=== PATIENT | male | born 1960 | race Caucasian/White ===

== ENCOUNTER 2020-11-17 11:09 | Emergency (ER) | payer BC, SELFPAY ==
[2020-11-17 11:15] VITALS: BP 129/87; PULSE 77; RESP 20; TEMP 36.9; O2SAT 96; BMI 29.9
[2020-11-17 11:40] VITALS: BP 129/87; PULSE 77; RESP 20; TEMP 36.9; O2SAT 96
--- NOTE | 2020-11-17 11:46 | HMH.EDUTC ---
[facility] Disposition Clinical Impression: Encounter for laboratory testing for COVID-19 virus, Viral syndrome Disposition: Home, Self-Care Condition on Discharge: Good Instructions: DI for Viral Syndrome, DI for COVID-19 (Suspected or Confirmed ), Coronavirus Disease 2019, Preventing the Spread of Coronavirus Discharge Instructions Additional Instructions: *Monitor Temp, Over the counter Motrin or Tylenol as directed/as needed Tylenol every 4 hours and Motrin every 6 hours (as long as your family doctor has told you that you can take it) for fever or pain. and straight to ER if unable to lower temp less than 101.0 after medication given *Warm salt water gargles may help to soothe the throat *Throat Lozenges *Warm fluids like tea with honey may help to soothe the throat *Sleep elevated *Humidifier/Vaporizer Follow up IMMEDIATELY for new or worsening symptoms or no Noticeable improvement over the next 48-72 hours. 911 for difficulty breathing or swallowing You were tested for today for COVID19 your test result should be back in the next 24-48 hours, you may call to the [facility] to see if your test results are back in the next 48 hours [phone] [facility] hours are 9am-9pm You was given a handout with instructions for Self Quarantine and Self isolation for while you wait on test results and what to do if they are positive If you are positive the Health Dept will be contacting you also Prescriptions: Benzonatate [Tessalon Perle 100mg Cap*] 100 mg PO TID PRN #30 cap PRN Reason: Cough Transmission Status: Pending to [id number] Referrals: Austin Conley [Primary Care Provider] - As needed Time of Disposition: 11:50 Medical Decision Making - Bhavik Inquiry Pt receiving controlled substance: No Bhavik was queried for this patient: No Vital Signs: 11/17/20 11:15 11/17/20 11:40 Temperature 98.5 F 98.5 F Temperature Source Oral Pulse Rate 77 Pulse Rate [Right Brachial] 77 Respiratory Rate 20 20 Blood Pressure 129/87 Blood Pressure [Right Arm] 129/87 Blood Pressure Mean [Right Arm] 101 Blood Pressure Source [Right Arm] Automatic Cuff Blood Pressure Position [Right Arm] Sitting 02 Sat by Pulse Oximetry 96 Oxygen Delivery Method Room Air Orders (Tests/Meds): ORDERS Category Date Time Status Covid-19 Nasal PCR ([facility]) Routine Lab 11/17/20 11:25 Received [facility] [place] HPI - General Stated complaint: body aches, fever, wants covid test Time Seen by Provider: 11/17/20 11:46 Mode of Arrival: Ambulatory Source of Information: Patient Limitations: No Limitations Description of Symptoms (Recalled from Triage Doc. by RN): PATIENT C/O BODY ACHES, FEVER, AND COUGH SINCE LAST NIGHT. REQUESTING COVID TEST HEENT Symptoms (Recalled from RN notes): No Resp Symptoms (Recalled from RN notes): Yes Skin Symptoms (Recalled from RN notes): No MS Symptoms (Recalled from RN notes): No Functional Status (Recalled from RN notes): WNL - History of Present Illness Provider Complaint: Patient states that he has been having body aches, cough, fever and chills that started yesterday States that today he is feeling a little better but wanted to come in and get tested for COVID - Related Data Previous Rx's Medication Instructions Recorded Benzonatate [Tessalon Perle 100mg 100 mg PO TID PRN #30 cap 11/17/20 Cap*] Allergies Allergy/AdvReac Type Severity Reaction Status Date / Time No Known Allergies Allergy Verified 11/17/20 11:37 - Worker's Comp Is this a Worker's Comp case?: No [facility] History - Hepatitis A Screen Drug use history?: No High risk sexual behaviors?: No History of sexually transmitted infection?: No Currently employed?: No Childcare worker?: No Do you have indoor plumbing?: Yes Do you have electricity?: Yes Attestation statement:: This patient has been screened for Hepatitis A risk factors. I have reviewed the patient's past medical history: Yes - Social History Alcohol Intake: danny
[2020-11-17 12:05] LABS: UTC Influenza A Antigen Negative (Negative); UTC Influenza B Antigen Negative (Negative)
--- NOTE | 2020-11-17 20:24 | PC.NURSE ---
ATTEMPTED TO CALL PT ABOUT COVID TEST RESULTS AND NO ANSWER, WILL TRY AGAIN LATER
--- NOTE | 2020-11-18 09:19 | PC.NURSE ---
patient notified of positive covid results
== END 2020-11-17 11:58 | disposition home or self-care (01) ==
PROVIDERS: Emergency Provider Nurse Practitioner; PCP Internal Medicine
DX: U07.1 COVID-19 (principal)
CPT/HCPCS: 87804; 99202; G0463; U0003

== ENCOUNTER 2021-08-25 19:47 | Emergency (ER) | payer BC, SELFPAY ==
[2021-08-25 19:49] VITALS: BP 157/96; PULSE 76; RESP 20; TEMP 36.8; O2SAT 95; BMI 28.5
--- NOTE | 2021-08-25 20:16 | HMH.EDFALL ---
ED Disposition Clinical Impression: Fall Qualifiers: Encounter type: initial encounter Qualified Code(s): W19.XXXA - Unspecified fall, initial encounter Disposition: Home, Self-Care Condition on Discharge: Good Instructions: How to Prevent Falls Additional Instructions: Please return to the emergency department immediately if you start vomiting repeatedly and or become confused or if you develop a severe headache. Referrals: Austin Conley MD [Primary Care Provider] - - Critical Care Critical Care Time: No Attestation: On , the high probability of a clinically significant, sudden or life threatening deterioration of the following system(s) required my full and direct attention, intervention and personal management. The time I documented below is in addition to time spent performing reported procedures but includes the following listed in this critical care notation. Medical Decision Making - Medical Records Medical records reviewed: Yes: I reviewed the patient's medical records. - Bhavik Inquiry Pt receiving controlled substance: No Vital Signs: 08/25/21 19:49 Temperature 98.2 F Temperature Source Oral Pulse Rate [Right Brachial] 76 Respiratory Rate 20 Blood Pressure [Right Radial Artery] 157/96 H Blood Pressure Mean [Right Radial Artery] 116 Blood Pressure Source [Right Radial Artery] Automatic Cuff Blood Pressure Position [Right Radial Artery] Supine 02 Sat by Pulse Oximetry 95 Oxygen Delivery Method Room Air - Lab Data Lab results reviewed: No: I reviewed the patient's lab results. Orders (Tests/Meds): ORDERS Category Date Time Status Complete Blood Count Auto Diff Stat Lab 08/25/21 20:16 Ordered Comprehensive Metabolic Panel Stat Lab 08/25/21 20:16 Ordered Troponin I Stat Lab 08/25/21 20:16 Ordered Medical Decision Narrative: The patient sustained a fall from standing without loss of consciousness. He struck the soft ground. This happened about 5 hours ago. He has not had any persistent symptoms. He does not complain of a persistent and severe headache. He is not on blood thinners. His mentation is normal. He has no focal deficits. I gave the patient the option of a head CT and or discharge home without further imaging. The patient has chosen to be discharged home. I agree with the patient's decision. I find that the likelihood of finding an actionable abnormality on the patient's CT of the head is very low. Fall HPI - General Chief Complaint: Fall Stated Complaint: AO 08/25@160 fell hit head and back Time Seen by Provider: 08/25/21 20:28 Mode of Arrival: Ambulatory Source of Information: Patient Limitations: No Limitations Description of Symptoms (Recalled from ER Triage Doc. by RN): Pt. fell climbing over a fence. He landed on his back and head. Pt. tried to stand back up and fell again. Denies LOC and N&V. Pt. reports dizziness. - History of Present Illness HPI Narrative: Fell from standing, struck back of head and thorax, No LOC. This happened at 4 PM today. The patient fell on soft ground. He struck his upper back and back of his head. He takes no blood thinner medications. He has had no nausea or vomiting since the event. MD complaint: fall Fall from: standing Fall witnessed: no - Related Data Previous Rx's Medication Instructions Recorded Benzonatate [Tessalon Perle 100mg 100 mg PO TID PRN #30 cap 11/17/20 Cap*] Allergies Allergy/AdvReac Type Severity Reaction Status Date / Time No Known Allergies Allergy Verified 11/17/20 11:37 [facility] History - Hepatitis A Screen Drug use history?: No High risk sexual behaviors?: No History of sexually transmitted infection?: No Currently employed?: No Childcare worker?: No Do you have indoor plumbing?: Yes Do you have electricity?: Yes Attestation statement:: This patient has been screened for Hepatitis A risk factors. I have reviewed the patient's past medical history: Yes - Social H
[2021-08-25 20:34] LABS: Basophils # 0.1 K/mm3 (0-0.2); Eosinophils # 0.1 K/mm3 (0.0-0.4); Eosinophils % 0.8 % (0.1-12.0); Hematocrit 50.6 % (42.0-52.0); Hemoglobin 17.2 g/dL (14.1-18.0); Lymphocytes # 2.2 K/mm3 (0.7-4.5); Lymphocytes % 18.4 % (10-50); Mean Corpuscular Hemoglobin 30.2 pg (27.0-31.2); Mean Platelet Volume 8.3 fl (7.4-10.4); Monocytes # 0.8 K/mm3 (0.1-1.0); Monocytes % 7.1 % (1.7-9.3); Neutrophils # 8.6 K/mm3 (1.8-7.8); Neutrophils % 72.8 % (37.0-80.0); Platelet Count 348 K/mm3 (142-424); Red Blood Count 5.69 M/mm3 (4.60-6.20); Red Cell Distribution Width 13.1 % (11.5-17.5); White Blood Count 11.9 K/mm3 (4.8-10.8)
[2021-08-25 20:37] LABS: Chloride 102 mmol/L (98-107); Potassium 4.2 mmoL/L (3.5-5.1); Sodium 139 mmol/L (136-145)
[2021-08-25 20:40] LABS: Alanine Aminotransferase 48 U/L (12-78); Albumin Level 4.6 g/dl (3.5-5.0); Albumin/Globulin Ratio 1.4 (1.1-1.8); Alkaline Phosphatase 88 U/L (38-126); Anion Gap 12.2 mEq/L (5-15); Aspartate Amino Transferase 45 U/L (17-59); Bilirubin,Total 0.7 mg/dl (0.2-1.3); Blood Urea Nitrogen 12 mg/dl (9-20); Carbon Dioxide 29 mmol/L (22.0-30.0); Creatinine Clearance Estimated 103 mL/min (50-200); Estimated Glomerular Filt Rate 137 ml/min (>60); GFR (African American) 165 ML/MIN (>60); Globulin 3.2 g/dL (1.3-3.2); Glucose 113 mg/dl (74-100); Total Protein,Serum 7.8 g/dl (6.3-8.2)
[2021-08-25 20:41] LABS: Calcium 10.1 mg/dl (8.4-10.2)
[2021-08-25 20:46] VITALS: BP 140/85; PULSE 80; RESP 20; TEMP 36.8; O2SAT 95
[2021-08-25 20:54] LABS: Troponin I < 0.01 ng/ml (0.00-0.034)
== END 2021-08-25 20:45 | disposition home or self-care (01) ==
PROVIDERS: Emergency Provider Emergency Medicine; PCP Internal Medicine
DX: S00.03XA Contusion of scalp, initial encounter (principal); S20.223A Contusion of bilateral back wall of thorax, initial encounter; W01.0XXA Fall on same level from slipping, tripping and stumbling without subsequent striking against object, initial encounter; Y92.73 Farm field as the place of occurrence of the external cause
CPT/HCPCS: 80053; 84484; 85025; 99282